=== PATIENT | male | born 1970 | race Caucasian/White ===

== ENCOUNTER 2018-07-07 06:51 | Day surgery (SDC) | payer BC, MEDICARE ==
[~2018-07-07] VITALS: Ht 180.3 cm; Wt 93.7 kg
[~2018-07-07 06:51] MED LIST: ALPR1TAB2 PO; BUTA1CAP57 PO; ENOX100S5 SQ; FURO-92 PO; LEVO175T5 PO; LISI40TA PO; METH750T2 PO; SOTA120T26 PO; SPIR25TA PO; UBID100C24 PO; WARF10TA PO; ZALE5CAP PO
[2018-07-07] MEDS ORDERED: VANCOMYCIN PMX 1GM/200ML 200 ML IV ONE (08:30)
[2018-07-07 08:39] VITALS: BP 94/69
[2018-07-07] MEDS ORDERED: SODIUM CHLORIDE 0.9% 1,000 ML IV SCH (08:41)
[2018-07-07 09:17] LABS: INTERNATIONAL NORMALIZED RATIO 1.14 (0.93-1.1); PROTHROMBIN TIME 11.9 Seconds (9.6-11.5)
[2018-07-07] MEDS ORDERED: LIDOCAINE 1%, 20ML ONE (09:22)
[2018-07-07] MEDS ORDERED: FENTANYL PF 100 MCG/2ML ONE (10:00)
[2018-07-07] MEDS ORDERED: MIDAZOLAM 1 MG/ML, 5ML ONE (10:00)
[2018-07-07] MEDS ORDERED: LIDOCAINE-MPF 1%, 5ML ONE ×2 (10:50)
== END 2018-07-07 12:35 | disposition home or self-care (01) ==
LOC: OUT 06:51
PROVIDERS: ATTEND Internal Medicine Hematology & Oncology
DX: Z45.2 Encounter for adjustment and management of vascular access device (principal); C83.18 Mantle cell lymphoma, lymph nodes of multiple sites; I50.9 Heart failure, unspecified; I25.10 Atherosclerotic heart disease of native coronary artery without angina pectoris; I48.91 Unspecified atrial fibrillation; Z95.810 Presence of automatic (implantable) cardiac defibrillator; Z72.89 Other problems related to lifestyle; Z88.0 Allergy status to penicillin
CPT/HCPCS: 36415; 36561; 76937; 77001; 85610; 93306; 99156; 99157; C1788; J1642; J2250; J3010; J3370; J3490; J7030